=== PATIENT | male | born 1955 | race Caucasian/White ===

== ENCOUNTER 2017-01-08 18:11 | Outpatient (CLI) | payer OTHER | END 2017-01-08 18:12 | disposition critical access hospital (66) | LOC: EMS 18:11 | PROVIDERS: ATTEND Surgery | DX: R10.30 Lower abdominal pain, unspecified (principal) | CPT/HCPCS: A0425; A0427 ==

== ENCOUNTER 2017-01-08 18:30 | Emergency (ER) | payer OTHER ==
[2017-01-08] MEDS ORDERED: HYDROmorphone 1 MG/ML SYRINGE IVP STA ×2 (18:52→20:12)
--- NOTE | 2017-01-08 18:52 | ED Physician Documentation ---
PD HPI ABD PAIN - Stated complaint Stated Complaint: ABD PAIN - Chief complaint Chief Complaint: Abd Pain - History obtained from History obtained from: Patient, EMS - History of Present Illness Timing - onset: Other (Sudden onset non radiating LLQ pain within the last hour. No chgs in urination, BMs. Is nauseous and has vomited. No abd surgeries. No cscope.) Review of Systems Ten Systems: 10 systems reviewed and negative Constitutional: denies: Fever, Chills Nose: denies: Rhinorrhea / runny nose, Congestion Cardiac: denies: Chest pain / pressure, Palpitations Respiratory: denies: Dyspnea, Cough GI: reports: Abdominal Pain, Nausea, Vomiting. denies: Constipation, Diarrhea : denies: Dysuria, Hematuria PD PAST MEDICAL HISTORY - Past Medical History Past Medical History: Yes Endocrine/Autoimmune: Type 2 diabetes Other Past Medical History: bells palsy, rib separation - Past Surgical History Past Surgical History: No - Present Medications Home Medications: Ambulatory Orders Medication Instructions Recorded Confirmed Gabapentin 300 mg PO BID 01/08/17 01/08/17 Ibuprofen [Motrin] 800 mg PO Q8H PRN #30 tablet 01/08/17 Insulin Glargine [Lantus Solostar] 45 units SQ DAILY 01/08/17 01/08/17 Lisinopril 10 mg PO DAILY 01/08/17 01/08/17 Oxycodone HCl/Acetaminophen 1 - 2 tab PO Q4H PRN #15 tablet 01/08/17 [Percocet 5-325 mg Tablet] Simvastatin 10 mg PO DAILY 01/08/17 01/08/17 Tamsulosin [Flomax] 0.4 mg PO DAILY #14 capsule 01/08/17 metFORMIN [Glucophage] 1,000 mg PO BID 01/08/17 01/08/17 - Allergies Allergies/Adverse Reactions: Allergies Allergy/AdvReac Type Severity Reaction Status Date / Time No Known Drug Allergies Allergy Verified 01/08/17 18:37 - Social History Does the pt smoke?: No Smoking Status: Never smoker Does the pt drink ETOH?: No Does the pt have substance abuse?: No - Family History Family history: reports: Non contributory PD ED PE NORMAL - Vitals Vital signs reviewed: Yes - General General: Alert and oriented X 3, Other (in pain) - HEENT HEENT: PERRL, EOMI - Neck Neck: Supple, no meningeal sign, No bony TTP - Cardiac Cardiac: RRR, No murmur - Respiratory Respiratory: No respiratory distress, Clear bilaterally - Abdomen Abdomen: Normal bowel sounds, Soft, Other (TTP LLQ, no G/R/M) - Back Back: No CVA TTP, No spinal TTP - Derm Derm: Normal color, Warm and dry - Extremities Extremities: No edema, No calf tenderness / cord - Neuro Neuro: Alert and oriented X 3, Normal speech - Psych Psych: Normal mood, Normal affect Results - Vitals Vitals: Vital Signs - 24 hr 01/08/17 01/08/17 18:35 20:07 Temperature 36.3 C L Heart Rate 71 81 Respiratory 19 20 Rate Blood Pressure 184/66 H 138/72 H O2 Saturation 100 100 Oxygen O2 Source Room air - Labs Labs: Laboratory Tests 01/08/17 01/08/17 01/08/17 19:16 19:16 20:55 WBC 6.8 RBC 4.40 L Hgb 14.1 Hct 40.9 L MCV 92.8 MCH 32.1 H MCHC 34.6 RDW 13.2 Plt Count 177 MPV 7.1 L Neut # 4.8 Lymph # 1.6 [place] # 0.4 Eos # 0.0 Baso # 0.0 Absolute Nucleated RBC 0.00 Nucleated RBCs 0.0 Sodium 137 Potassium 3.5 Chloride 110 Carbon Dioxide 19 L Anion Gap 8.0 BUN 21 H Creatinine 1.4 H Estimated GFR (MDRD) 52 L Glucose 213 H Calcium 9.4 Total Bilirubin 1.0 AST 35 ALT 35 Alkaline Phosphatase 81 Total Protein 7.6 Albumin 4.7 Globulin 2.9 Albumin/Globulin Ratio 1.6 Lipase 25 Urine Color YELLOW Urine Clarity CLEAR Urine pH 7.0 Ur Specific [place] 1.010 Urine Protein NEGATIVE Urine Glucose (UA) NEGATIVE Urine Ketones NEGATIVE Urine Occult Blood SMALL H Urine Nitrite NEGATIVE Urine Bilirubin NEGATIVE Urine Urobilinogen 0.2 (NORMAL) Ur Leukocyte Esterase NEGATIVE Urine RBC 0-5 Urine WBC 0-3 Ur Squamous Epith Cells RARE Squamous Urine Bacteria Rare Ur Microscopic Review INDICATED Urine Culture Comments NOT INDICATED - Rads (name of study) CT A/P Radiology: EMP read contemporaneously (Obstructing 4 x 5 x 6 mm ureteral calcification of the left UVJ) PD MEDICAL DECISION MAKING - ED course ED course: 61-year-old with sudden onset left lower quadrant pain found to be due to a ureteral stone. Did not have much help with narcotics but had excellent relief with Toradol. Departure - Departure Disposition: 01 Home, Self Care Clinical Impression: Renal colic Condition: Good Record reviewed to determine appropriate education?: Yes Instructions: ED Stone Renal W Colic Prescriptions: Tamsulosin [Flomax] 0.4 mg PO DAILY #14 capsule Ibuprofen [Motrin] 800 mg PO Q8H PRN #30 tablet PRN Reason: PAIN &/OR FEVER Oxycodone HCl/Acetaminophen [Percocet 5-325 mg Tablet] 1 - 2 tab PO Q4H PRN #15 tablet PRN Reason: Pain Comments: Do not take your metformin for the next6 48 hours. (It reacts with the CT contrast you got) If not better in the next few days, I recommend scheduling a follow-up appointment with the urologist, the closest is associated with [facility], Call [phone] to schedule an appointment. Use the urine strainers as shown and save any material recovered for analysis. Your blood pressure was elevated today on check into the emergency department. This does not mean that you have hypertension, it is a common phenomenon to come to the emergency department and have elevated blood pressure. I recommend that she see her primary care physician within the week to have it rechecked when you are feeling better. Do not drink or drive while taking narcotic pain medication. Note that many narcotic pain relievers also contain Tylenol/acetaminophen. Please ensure that your total dose of acetaminophen from all sources does not exceed 3 g (3000 mg) per day. You may get constipated while on this medication. Take a stool softener such as Colace twice a day while you are on it. Also add an [id number] laxative such as senna or MiraLAX on any day that you do not have a bowel movement. If you received a narcotic pain medication or sedative while in the emergency department, do not drive for the next 24 hours. Forms: Activity restrictions
[2017-01-08] MEDS ORDERED: HYDROmorphone 1 MG/ML SYRINGE ONE ×2 (18:58→20:18)
[2017-01-08 19:25] LABS: BASOPHILS % (AUTO) 0.6 %; EOSINOPHILS % (AUTO) 0.5 %; HCT - HEMATOCRIT 40.9 % (42.0-52.0); HGB - HEMOGLOBIN 14.1 g/dL (14.0-18.0); LYMPHOCYTES # (AUTO) 1.6 10^3/uL (1.5-3.5); LYMPHOCYTES % (AUTO) 23.1 %; MEAN CORPUSCULAR HEMOGLOBIN 32.1 pg (27.0-31.0); MEAN CORPUSCULAR HGB CONC 34.6 g/dL (32.0-36.0); MEAN CORPUSCULAR VOLUME 92.8 fL (80.0-94.0); MEAN PLATELET VOLUME 7.1 fL (7.4-11.4); MONOCYTES # (AUTO) 0.4 10^3/uL (0.0-1.0); MONOCYTES % (AUTO) 5.3 %; NEUTROPHILS # (AUTO) 4.8 10^3/uL (1.5-6.6); NEUTROPHILS % (AUTO) 70.5 %; RED CELL DISTRIBUTION WIDTH 13.2 % (12.0-15.0); UNCORRECTED WHITE BLOOD COUNT 6.8 x10^3/uL; WHITE BLOOD COUNT 6.8 x10^3/uL (4.8-10.8)
[2017-01-08 19:34] LABS: ALBUMIN/GLOBULIN RATIO 1.6 (1.0-2.2); CALCIUM 9.4 mg/dL (8.5-10.3); CREATININE 1.4 mg/dL (0.6-1.2); POTASSIUM 3.5 mmol/L (3.5-5.0); TOTAL PROTEIN 7.6 g/dL (6.7-8.2)
[2017-01-08] MEDS ORDERED: IOPAMIDOL-300 100 ML VIAL IVP ONE (20:29)
[2017-01-08] MEDS ORDERED: KETOROLAC 60 MG/2 ML VIAL IVP STA (20:40)
[2017-01-08] MEDS ORDERED: SODIUM CHLORIDE 0.9% 1,000 ML IV ONE (20:40)
[2017-01-08] MEDS ORDERED: KETOROLAC 30 MG/ML VIAL ONE (20:44)
[2017-01-08 21:02] LABS: BILIRUBIN,URINE NEGATIVE (NEGATIVE)
[2017-01-08 21:03] LABS: UA w/ MICROSCOPIC CHARGE YES
[2017-01-08 21:09] LABS: UR CULTURE IF IND NOT INDICATED; WBC,URINE 0-3 /HPF (0-3)
--- NOTE | 2017-01-08 21:13 | CT Preliminary Report ---
Exam: CT Abdomen/Pelvis W/ IMPRESSION: Obstructing 4 x 5 x 6 mm ureteral calcification at the left UVJ with mild left hydronephr osis and hydroureter. [facility] SITE ID: [id number]
--- NOTE | 2017-01-08 21:15 | CT Report ---
EXAM: CT ABDOMEN AND PELVIS EXAM DATE: 01/08/2017 08:45 PM. CLINICAL HISTORY: Left lower quadrant pain. COMPARISONS: None. TECHNIQUE: Routine helical CT imaging was performed through the abdomen and pelvis. IV contrast: 100 cc of Isovue-300. Enteric contrast: No. Reconstructions: Coronal and sagittal. In accordance with CT protocol optimization, one or more of the following dose reduction techniques w ere utilized for this exam: automated exposure control, adjustment of mA and/or KV based on patient s ize, or use of iterative reconstructive technique. FINDINGS: Lung Bases: Unremarkable. Liver: Normal. No masses. Gallbladder/Bile Ducts: Unremarkable. Spleen: Normal. Pancreas: Normal. Adrenal Glands: Normal. Kidneys: Normal right kidney. Mild left hydronephrosis and hydroureter due to an obstructing 4 x 5 X 6 mm calcification at the UVJ. No intrarenal stones. Peritoneal Cavity/Bowel: Normal. No free fluid, free air or adenopathy. No masses or acute inflammato ry process. The appendix is well visualized and normal. Pelvic Organs: Prostate and bladder are unremarkable. Vasculature: No aneurysms or other significant abnormality. Bones: Degenerative disk disease at L4-L5 and L5-S1. Other: Small fat-containing right inguinal hernia noted. IMPRESSION: Obstructing 4 x 5 x 6 mm ureteral calcification at the left UVJ with mild left hydronephr osis and hydroureter. [facility] Referring Provider Line: [phone] SITE ID: [id number]
[2017-01-08] MEDS ORDERED: oxyCODONE/ACET 5/325 Prepack 4 PO STA (21:21)
[2017-01-08] MEDS ORDERED: TAMSULOSIN 0.4 MG CAPSULE PO STA (21:22)
[2017-01-08] MEDS ORDERED: TAMSULOSIN 0.4 MG CAPSULE ONE (21:37)
[2017-01-08] MEDS ORDERED: oxyCODONE/ACET 5/325 Prepack 4 PO ONE (21:37)
[2017-01-08 21:44] VITALS: BP 149/83
== END 2017-01-08 21:45 | disposition home or self-care (01) ==
LOC: EDUNIT# → ED 18:30
DX: N23 Unspecified renal colic (principal); E11.8 Type 2 diabetes mellitus with unspecified complications; R03.0 Elevated blood-pressure reading, without diagnosis of hypertension; Z79.4 Long term (current) use of insulin
CPT/HCPCS: 36415; 74177; 80053; 81001; 83690; 85025; 96374; 96375; 96376; 99284; A9270; J1170; Q9967; 81003; 87086